=== PATIENT | female | born 2000 | race Caucasian/White ===

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

== ENCOUNTER 2018-01-09 19:08 | Outpatient (CLI) | END 2018-01-09 23:00 | disposition home or self-care (01) ==

== ENCOUNTER 2018-01-14 06:42 | Inpatient (IN) | END 2018-01-16 13:17 | disposition home or self-care (01) | DRG 775 ==